=== PATIENT | female | born 1975 | race Caucasian/White ===

== ENCOUNTER 2020-03-02 12:52 | Emergency (ER) | payer OTHER, SELFPAY ==
[2020-03-02 13:50] LABS: Apearance,Urine Clear (Clear); Bilirubin,Urine Negative (Negative); Blood, Urine Negative (Negative); Color,Urine Dark Yellow (Yellow); Glucose,Urine (UA) Negative (Negative); Ketones,Urine Negative (Negative); PH,Urine 5.5 (5.0-8.5); Protein,Urine Negative (Negative); UTC Leukocyte Esterase,Urine Negative (Negative); UTC Nitrate,Urine Negative (Negative); Urobilinogen,Urine 0.2 EU/dl (0.2)
[2020-03-02 13:53] VITALS: BP 156/107; PULSE 102; RESP 20; TEMP 36.5; O2SAT 97; BMI 42.5
--- NOTE | 2020-03-02 13:57 | HMH.EDUTC ---
[facility] [place] Disposition Clinical Impression: Constipation Qualifiers: Constipation type: unspecified constipation type Qualified Code(s): K59.00 - Constipation, unspecified Disposition: Home, Self-Care Condition on Discharge: Good Instructions: Constipation, DI for Abdominal Pain-Adult, DI for Constipation Additional Instructions: Increase the amount of water that you are drinking you need to drink at least 8 -10 glasses of water a day *Follow up with Family Doctor if no improvement Straight to ER if any worsening of pain or fever Return if needed Over the counter Stool softner or Magnesium Citrate may help with constipation as directed on the package Referrals: Teofilo Powell [Primary Care Provider] - As needed Time of Disposition: 15:50 Medical Decision Making - Norberto Inquiry Pt receiving controlled substance: No Norberto was queried for this patient: No Vital Signs: 03/02/20 13:53 03/02/20 15:03 Temperature 97.7 F 97.7 F Temperature Source Oral Pulse Rate 102 H Pulse Rate [Right Brachial] 102 H Respiratory Rate 20 20 Blood Pressure 156/107 H Blood Pressure [Right Arm] 156/107 H Blood Pressure Mean [Right Arm] 123 Blood Pressure Source [Right Arm] Automatic Cuff Blood Pressure Position [Right Arm] Sitting 02 Sat by Pulse Oximetry 97 Oxygen Delivery Method Room Air - Lab Data Lab results reviewed: Yes: I reviewed the patient's lab results. Lab Results 03/02/20 13:46: Urine Color Dark yellow, Urine Appearance Clear, Urine pH 5.5, Ur Specific Gable 1.030, Urine Protein Negative, Urine Glucose (UA) Negative, Urine Ketones Negative, Urine Blood Negative, Urine Nitrate Negative, Urine Bilirubin Negative, Urine Urobilinogen 0.2, Ur Leukocyte Esterase Negative - Radiology Data #1 Image(s): KUB Image Reviewed: Yes I reviewed the patient's radiology image w/the ED provider Discussed with ED physician Constipation Medical Decision Narrative: 1400 called ed about discussion of transfer to ED due to abdominal pain, awaiting call back Spoke with Dr Burton about KUB see recorded and spoke with patient about transfer to ED patient declined transfer at this time Patient educated to go home and drink plenty of water and over the counter stool softner/mag citrate to clear stool and return immediately to the ED if she develops fever or worsening of pain and patient agreed Spoke with Dr Burton and informed her of discussion with patient and she agreed [facility] [place] HPI - General Stated complaint: stomach pain and lower back,no accident Time Seen by Provider: 03/02/20 13:57 Mode of Arrival: Ambulatory Source of Information: Patient Limitations: No Limitations Description of Symptoms (Recalled from Triage Doc. by RN): PATIENT C/O LOWER BACK PAIN AND LOWER ABDOMINAL CRAMPING X 3-4 DAYS. STATES SHE FEELS LIKE SHE HAS TO URINATE FREQUENTLY AND HER URINE IS DARK HEENT Symptoms (Recalled from RN notes): No Resp Symptoms (Recalled from RN notes): No Skin Symptoms (Recalled from RN notes): No MS Symptoms (Recalled from RN notes): Yes Functional Status (Recalled from RN notes): WNL - History of Present Illness Provider Complaint: Patient states that she has been having pain in her lower back area and cramping like pain in her lower abdomen for a couple of days that has continued to get worse states that at times feels like spasm like pain in her abdomen. States that she has a history of kidney stones but doesnt feel like it did then States that she did notice her urine looked dark so she was thinking she may have a UTI States that today she was having some pain/pressure in her lower abdomen still so she came in to get checked - Related Data Home Medications Medication Instructions Recorded Confirmed No Known Home Medications 03/02/20 03/02/20 Allergies Allergy/AdvReac Type Severity Reaction Status Date / Time No Known Allergies Allergy Verified 03/02/20 13:57 - Worker's Comp Is this a Worker's Comp ca
--- NOTE | 2020-03-02 14:36 | XR_ITS ---
PROCEDURE: XR KUB CLINICAL INDICATION: ABD PAIN COMPARISON: CT ABDPELW/O CT ABD PELVIS W/O CONTRAST from 07/13/2015 FINDINGS: Gas pattern-The bowel gas pattern is unremarkable. No obvious obstruction. Calcifications-No abnormal calcifications are evident. No obvious renal or ureteral calculi. Bones-No acute bony anomalies evident. There are mild osteoarthritic changes of the hips. Prior cholecystectomy. Mild amount of retained colonic feces in the transverse colon and ascending colon. IMPRESSION: As above, no acute finding Dictated by: Rayo Tobin MD 03/02/2020 15:03 Rayo Tobin MD in [place] 03/02/2020 15:03
[2020-03-02 15:03] VITALS: BP 156/107; PULSE 102; RESP 20; TEMP 36.5; O2SAT 97
== END 2020-03-02 15:05 | disposition home or self-care (01) ==
PROVIDERS: Emergency Provider Nurse Practitioner; PCP Pediatrics
DX: K59.00 Constipation, unspecified (principal)
CPT/HCPCS: 74018; 81003; 99202

== ENCOUNTER → 2022-07-11 11:49 | Outpatient (CLI) | payer OTHER, SELFPAY ==
--- NOTE | 2022-07-11 11:51 | XR_ITS ---
FINAL REPORT CLINICAL HISTORY: flank pain FINDINGS: There is gas and stool throughout the colon. There are no abnormally dilated loops of small bowel. No abnormal calcification is identified. IMPRESSION: Nonobstructive bowel gas pattern. Reviewed, Interpreted and Dictated by Chiki Erickson MD Transcribed by Mynor Giron Authenticated and [facility]
== END ==
PROVIDERS: PCP Pediatrics; Visit Provider Student in an Organized Health Care Education/Training Program
DX: R10.9 Unspecified abdominal pain (principal)
CPT/HCPCS: 74018

== ENCOUNTER → 2022-07-11 23:38 | Outpatient (CLI) | payer OTHER, SELFPAY | PROVIDERS: PCP Student in an Organized Health Care Education/Training Program; Visit Provider Student in an Organized Health Care Education/Training Program | DX: M54.50 Low back pain, unspecified (principal) | CPT/HCPCS: 87086 ==

== ENCOUNTER → 2022-07-13 12:47 | Outpatient (CLI) | payer OTHER, SELFPAY ==
--- NOTE | 2022-07-13 12:48 | CT_ITS ---
FINAL REPORT TECHNIQUE: Axial images through the abdomen and pelvis were performed without contrast. This study was performed with techniques to keep radiation doses as low as reasonably achievable, (ALARA). Individualized dose reduction techniques using automated exposure control or adjustment of mA and/or kV according to the patient's size were employed. CLINICAL HISTORY: flank pain, right sided back pain, nausea FINDINGS: CT ABDOMEN & PELVIS W/O CONTRAST Abdomen: The lung bases are clear. The liver parenchyma is homogeneous. The gallbladder is surgically absent. The spleen, pancreas, adrenals and kidneys are unremarkable. No definite renal stones are identified. Pelvis: The urinary bladder is unremarkable. The appendix is unremarkable. The uterus is anteverted. There is no pelvic mass or inflammation. IMPRESSION: No acute abnormality. No definite renal stones. Reviewed, Interpreted and Dictated by Chkii Erickson MD Transcribed by Tiffany Rosario Authenticated and . [facility]
== END ==
PROVIDERS: PCP Pediatrics; Visit Provider Student in an Organized Health Care Education/Training Program
DX: R10.9 Unspecified abdominal pain (principal)
CPT/HCPCS: 74176

== ENCOUNTER → 2022-07-25 07:44 | Outpatient (CLI) | payer OTHER, SELFPAY ==
[2022-07-25 08:54] LABS: Chloride 109 mmol/L (98-107); Potassium 4.5 mmoL/L (3.5-5.1); Sodium 140 mmol/L (136-145)
[2022-07-25 08:57] LABS: Anion Gap 9.5 mEq/L (5-15); Blood Urea Nitrogen 10 mg/dl (7-17); Carbon Dioxide 26 mmol/L (22.0-30.0); Estimated Glomerular Filt Rate 108 ml/min (>60); GFR (African American) 131 ML/MIN (>60)
[2022-07-25 08:58] LABS: Calcium 8.6 mg/dl (8.4-10.2); Glucose 130 mg/dl (74-100)
[2022-07-26 13:10] LABS: Adrenocorticotropic Hormone 1.6 pg/mL (7.2-63.3)
[2022-08-09 15:29] LABS: Renin Activity, Plasma 0.189 ng/mL/hr (0.167-5.380)
== END ==
PROVIDERS: PCP Pediatrics; Visit Provider Nurse Practitioner
DX: E27.8 Other specified disorders of adrenal gland (principal)
CPT/HCPCS: 36415; 80048; 82024; 82088; 82533; 82626; 84244

== ENCOUNTER → 2022-08-10 23:00 | Outpatient (CLI) | payer OTHER, SELFPAY ==
[2022-08-10 18:58] LABS: Anion Gap 11.2 mEq/L (5-15); Blood Urea Nitrogen 14 mg/dl (7-17); Calcium 8.6 mg/dl (8.4-10.2); Carbon Dioxide 28 mmol/L (22.0-30.0); Chloride 102 mmol/L (98-107); Chol/HDL Ratio 3.5 (1-3.5); Cholesterol 185 mg/dl (140-200); Estimated Glomerular Filt Rate 90 ml/min (>60); GFR (African American) 109 ML/MIN (>60); Glucose 99 mg/dl (74-100); HDL Cholesterol 53 mg/dl (40-60); Potassium 4.2 mmoL/L (3.5-5.1); Sodium 137 mmol/L (136-145); Triglycerides 95 mg/dl (30-150); VLDL Cholesterol 19 mg/dL (0-40)
[2022-08-10 19:09] LABS: Direct LDL Cholesterol 109.28 mg/dL (100-129)
[2022-08-10 19:26] LABS: T4 (Thyroxine) 10.1 ug/dl (5.53-11.0)
[2022-08-10 19:39] LABS: Thyroid Stimulating Hormone 0.63 uIU/mL (0.465-4.68)
[2022-08-10 21:09] LABS: Hemoglobin A1C 5.3 % (4.0-6.0)
[2022-08-10 21:25] LABS: Free Thyroxine Index 3.1 ug/dL (5.93-13.13); Triiodothryronine (T3) Uptake 31 % (23.5-40.5)
== END ==
PROVIDERS: PCP Nurse Practitioner Family; Visit Provider Nurse Practitioner Family
DX: I10 Essential (primary) hypertension (principal); Z13.1 Encounter for screening for diabetes mellitus; Z13.220 Encounter for screening for lipoid disorders; Z79.899 Other long term (current) drug therapy
CPT/HCPCS: 80048; 80061; 83036; 84436; 84443; 84479

== ENCOUNTER → 2022-09-09 07:45 | Outpatient (CLI) | payer OTHER, SELFPAY ==
--- NOTE | 2022-09-09 07:45 | MM_ITS ---
PROCEDURE INFORMATION: Exam: Bilateral Screening 3D Mammography Exam date and time: 09/09/2022 7:47 AM Age: 47 years old Clinical indication: Baseline. No family history of breast cancer. TECHNIQUE: Imaging protocol: Bilateral Screening tomosynthesis and 2D mammography including computer-aided detection (CAD) when performed. COMPARISON: No relevant prior studies available. FINDINGS: MAMMOGRAPHY: Breast composition: The breasts are heterogeneously dense, which may obscure small masses. Mass: None. Architectural distortion: None. Calcifications: No suspicious calcifications. Asymmetric density: None. Skin thickening: None. Axillary adenopathy: None. IMPRESSION: No mammographic evidence of malignancy. Annual screening is recommended unless otherwise clinically indicated. ASSESSMENT: BI-RADS Category 1: Negative
== END ==
PROVIDERS: PCP Nurse Practitioner Family; Visit Provider Nurse Practitioner Family
DX: Z12.31 Encounter for screening mammogram for malignant neoplasm of breast (principal); I10 Essential (primary) hypertension
CPT/HCPCS: 77063; 77067

== ENCOUNTER → 2022-09-21 09:23 | Outpatient (CLI) | payer OTHER, SELFPAY ==
[2022-09-21 10:38] LABS: HCG Qualitative, Serum Negative (Negative)
== END ==
PROVIDERS: PCP Nurse Practitioner Family; Visit Provider Nurse Practitioner Family
DX: N92.6 Irregular menstruation, unspecified (principal)
CPT/HCPCS: 36415; 84703

== ENCOUNTER → 2022-10-05 15:14 | Outpatient (CLI) | payer OTHER, SELFPAY ==
[2022-10-07 09:37] LABS: FSH 33.5 mIU/mL (.)
[2022-10-07 12:37] LABS: Estradiol 12.8 pg/mL (.); LH 31.3 mIU/mL (.)
== END ==
PROVIDERS: PCP Nurse Practitioner Family; Visit Provider Nurse Practitioner Obstetrics & Gynecology
DX: E34.9 Endocrine disorder, unspecified (principal)
CPT/HCPCS: 36415; 82670; 83001; 83002

== ENCOUNTER 2023-08-14 11:31 | Emergency (ER) | payer OTHER, SELFPAY ==
[2023-08-14] VITALS (9 sets, daily range): BP systolic 122–138; BP diastolic 74–95; PULSE 69–87; RESP 9–20; TEMP 37; O2SAT 95–98; BMI 33.4
[2023-08-14 11:45] LABS: Coronavirus 19, PCR Not Detected (NotDetected); Influenza B, PCR Not Detected (NotDetected)
--- NOTE | 2023-08-14 11:50 | PC.NURSE ---
Dr. Hamilton at [facility] for pt eval
--- NOTE | 2023-08-14 11:52 | XR_ITS ---
FINAL REPORT CLINICAL HISTORY: Acute cough FINDINGS: Two views of the chest were obtained. The heart size and pulmonary vascularity are within normal limits. The mediastinum is normal. No acute pulmonary abnormality is identified. There is no pneumothorax. The bony thorax is intact. IMPRESSION: No active cardiopulmonary disease. Reviewed, Interpreted and Dictated by Gianni Leary III, MD Transcribed by Vidya Brumfield Authenticated and [facility]
--- NOTE | 2023-08-14 11:57 | HMH.EDGENADL ---
Discharge Plan Disposition Patient Disposition: Home, Self-Care Prescriptions Prescriptions: New promethazine 25 mg tablet 25 mg PO TID PRN (Reason: nausea and vomiting) Qty: 12 0RF No Action hydroxyzine pamoate 25 mg capsule See Rx Instructions .ROUTE .COMPLEX Qty: 90 1RF Dose Instruction: TAKE 1 CAPSULE BY MOUTH THREE TIMES DAILY NEEDED FOR ANXIETY Rx Instructions: TAKE 1 CAPSULE BY MOUTH THREE TIMES DAILY NEEDED FOR ANXIETY Premarin 1.25 mg tablet 1.25 mg PO DAILY Qty: 30 6RF progesterone micronized [Prometrium] 100 mg capsule 100 mg PO DAILY 30 Days Qty: 30 6RF amlodipine 5 mg tablet 5 mg PO DAILY Qty: 90 1RF escitalopram oxalate [Lexapro] 10 mg tablet 10 mg PO DAILY Qty: 90 1RF hydrochlorothiazide 25 mg tablet 25 mg PO DAILY Qty: 90 1RF lisinopril 20 mg tablet 20 mg PO DAILY Qty: 90 1RF Referrals Follow up/Referrals: Sam Mclaughlin DO [Primary Care Provider] - See instructions Activity Restrictions/Add. Instructions Additional Instructions/Restrictions: At this time it was felt you are safe to be discharged home. If new or worsening symptoms please do not hesitate to return the emergency department. Please follow-up with your family doctor as discussed for repeat checking of your potassium within 1 week. Please take your medication as prescribed. Clinical Impressions Clinical Impression: Influenza A, Acute hypokalemia Discharge ED Provider: Juma Hamilton General Adult HPI General Chief complaint: Upper Respiratory Infection Stated complaint: v/d headache fever chills Time Seen by Provider: 08/14/23 11:41 Mode of Arrival: Ambulatory Source of Information: Patient Limitations: No Limitations Description of Symptoms (Recalled from ER Triage Doc. by RN): pt states she has been sick x4d. pt c/o a MONTERROSO, N/V/D, cough and fever. History of Present Illness HPI narrative: Patient is a 47-year-old female with no pertinent past medical history presents for 4 days of illness. Patient has had intractable vomiting, inability tolerate p.o., cough with 1 episode of syncope. There is associated diarrhea. Due to persistent symptoms and inability to tolerate p.o. she presents here for continued evaluation. Person that lives with her developed symptoms this morning similar to her cough. Related Data Previous Rx's Medication Instructions Recorded conjugated estrogens 1.25 mg 1.25 mg PO DAILY #30 tabs 06/01/23 tablet (Premarin) progesterone micronized 100 mg 100 mg PO DAILY 30 days #30 caps 06/01/23 capsule (Prometrium) hydroxyzine pamoate 25 mg capsule See Rx Instructions .Route 06/06/23 .COMPLEX #90 caps amlodipine 5 mg tablet 5 mg PO DAILY #90 tabs 06/20/23 escitalopram oxalate 10 mg tablet 10 mg PO DAILY #90 tabs 06/20/23 (Lexapro) hydrochlorothiazide 25 mg tablet 25 mg PO DAILY #90 tabs 06/20/23 lisinopril 20 mg tablet 20 mg PO DAILY #90 tabs 06/20/23 promethazine 25 mg tablet 25 mg PO TID PRN nausea and 08/14/23 vomiting #12 tabs Allergies Allergy/AdvReac Type Severity Reaction Status Date / Time No Known Allergies Allergy Verified 06/20/23 08:56 [facility] Disclaimer: The information contained in this section may have been updated after the patient was seen, as this information can be updated by other users. Medical History History of adrenal disorder History of hypertension Insomnia Surgical History History of back surgery L4, L5 Hx of cholecystectomy Hx of knee surgery Hx of tonsillectomy Hx of tubal ligation Family History Other Diabetes Hypertension Social History Smoking Status: Never smoker how long ago did patient quit smoking: just smoked socially in the past; none current second hand exposure: No alcohol intake: current counseling given: No substance use type: marijuana counseling given: No (last time she did this was about 3 weeks ago) current occupational status: employed Travel in the last 8 weeks: None adopted: No caregiver/support person: No foster care: No household members: significant other housing: house lives independently: Yes marital status: number of children: 2 number of grandchildren: 1 education level: high school 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 Recent Travel: No sexually active: Yes caffeine: Yes physical activity: none working smoke detector in home: Yes fire extinguisher in home: Yes carbon monox detector in home: Yes firearms in home: No do you feel safe at home: Yes victim of physical abuse: No victim of emotional abuse: No victim of sexual abuse: No ROS Obtained: Yes Systems reviewed as appropriate & no additional complaints except as documented Physical Exam General General appearance: alert and in no apparent distress Head Head exam: atraumatic and normocephalic Eye Eye exam: Present PERRL ENT ENT exam: Present mucous membranes moist Neck Neck exam: Present normal inspection Chest Chest inspection: Present normal inspection and symmetric chest wall rise Respiratory Respiratory exam: Present normal lung sounds bilaterally and wheezes (Scant, posterior lung alaniz); Absent respiratory distress Cardiovascular Cardiovascular exam: Present regular rate and normal rhythm Abdominal Exam Abdominal exam: Present soft; Absent tenderness Extremities Exam Extremities exam: Present normal inspection Neurological Exam Neurological exam: Present alert Psychiatric Psychiatric exam: Present normal affect Skin Skin exam: Present warm and dry Medical Decision Making Norberto Inquiry Pt receiving controlled substance: No Vital Signs: 08/14/23 11:43 08/14/23 12:21 08/14/23 12:28 Temperature 98.6 F Temperature Source Oral Pulse Rate 78 72 Pulse Rate [Left] 82 Respiratory Rate 18 12 12 Blood Pressure 138/86 138/86 Blood Pressure [Right Arm] 137/95 H Blood Pressure Mean [Right Arm] 109 Blood Pressure Source [Right Arm] Automatic Cuff Blood Pressure Position [Right Arm] Sitting 02 Sat by Pulse Oximetry 97 97 96 Oxygen Delivery Method Room Air Room Air 08/14/23 12:30 08/14/23 13:00 08/14/23 13:30 Temperature Temperature Source Pulse Rate 69 78 70 Pulse Rate [Left] Respiratory Rate 13 9 L 19 Blood Pressure 134/83 132/82 125/79 Blood Pressure [Right Arm] Blood Pressure Mean [Right Arm] Blood Pressure Source [Right Arm] Blood Pressure Position [Right Arm] 02 Sat by Pulse Oximetry 97 96 96 Oxygen Delivery Method Room Air Room Air Room Air 08/14/23 13:45 08/14/23 14:30 Temperature Temperature Source Pulse Rate 85 70 Pulse Rate [Left] Respiratory Rate 17 16 Blood Pressure 126/74 128/88 Blood Pressure [Right Arm] Blood Pressure Mean [Right Arm] Blood Pressure Source [Right Arm] Blood Pressure Position [Right Arm] 02 Sat by Pulse Oximetry 98 95 Oxygen Delivery Method Room Air Room Air Lab Data Lab Results 08/14/23 11:40: SARS-CoV-2 (PCR) Not detected, Influenza A Untype (PCR) Detected A, Influenza Type B (PCR) Not detected 08/14/23 11:50: WBC 5.7, RBC 4.91, Hgb 14.6, Hct 44.6, MCV 90.9, MCH 29.7, MCHC 32.7, RDW 13.7, Plt Count 231, MPV 8.2, Neut % (Auto) 62.0, Lymph % (Auto) 30.5, [place] % (Auto) 6.0, Eos % (Auto) 0.5, Baso % (Auto) 1.1, Neut # (Auto) 3.6, Lymph # (Auto) 1.7, [place] # (Auto) 0.3, Eos # (Auto) 0.0, Baso # (Auto) 0.1, Sodium 138, Potassium 3.0 L, Chloride 100, Carbon Dioxide 28, Anion Gap 13.0, BUN 13, Creatinine 0.70, Estimated Creat Clear 158, Estimated GFR 90, Est GFR ( Amer) 109, Glucose 122 H, Calcium 8.6, Total Bilirubin 0.5, AST 34, ALT 31, Alkaline Phosphatase 68, Total Protein 7.9, Albumin 4.4, Globulin 3.5 H, Albumin/Globulin Ratio 1.3, Lipase 60, Serum HCG, Qual Negative 08/14/23 11:50 08/14/23 11:50 Orders (Tests/Meds): ED MEDICATIONS Generic Name Dose Route Start Last Admin Trade Name Freq PRN Reason Stop Dose Admin Sodium Chloride 10 ml 08/14/23 11:52 08/14/23 13:19 Sodium Chloride 0.9% 10ml Flush Syringe IV 08/14/23 23:53 10 ml NEEDED PRN Administration Maintain IV Site Discontinued Medications Generic Name Dose Route Start Last Admin Trade Name Freq PRN Reason Stop Dose Admin Lactated Ringer's 1,000 mls @ 999 mls/hr 08/14/23 11:52 08/14/23 12:00 Lactated Ringer's 1000 Ml Bag IV 08/14/23 12:52 999 mls/hr .Q1H1M ONE Administration Potassium Chloride/Water 100 mls @ 50 mls/hr 08/14/23 12:13 08/14/23 12:51 Potassium Chloride 20meq/100ml Ivpb IV 08/14/23 14:12 50 mls/hr ONCE ONE Administration Ondansetron HCl 4 mg 08/14/23 11:52 08/14/23 12:00 Ondansetron 4mg/2ml Vial IV 08/14/23 11:53 4 mg ONCE ONE Administration Potassium Chloride 40 meq 08/14/23 12:10 08/14/23 12:56 Potassium Chloride 20meq Tab PO 08/14/23 12:11 40 meq ONCE ONE Administration Promethazine HCl 25 mg 08/14/23 13:16 08/14/23 13:18 Promethazine Hcl 25mg/Ml 1ml Vial IV 08/14/23 13:17 25 mg ONCE ONE Administration Sodium Chloride 25 ml 08/14/23 13:16 08/14/23 13:18 Sodium Chloride 0.9% 25ml Bag IV 08/14/23 13:17 25 ml ONCE ONE Administration ORDERS Category Date Time Status CXR 2 view (NOT portable) [XR chest 2V] Stat Exams 08/14/23 11:52 Completed Complete Blood Count Auto Diff Stat Lab 08/14/23 11:50 Completed Comprehensive Metabolic Panel Stat Lab 08/14/23 11:50 Completed Lipase Stat Lab 08/14/23 11:50 Completed Rapid PCR Covid and Flu A/B Stat Lab 08/14/23 11:40 Completed Serum [HCG Qualitative, Serum] Stat Lab 08/14/23 11:50 Completed EKG Request [ECG Request] Stat Y 08/14/23 11:59 Ordered ECG Data Tracing #1: Independently interpreted by me, rate 75, rhythm is regular, no ST elevation in anatomical contiguous leads, QTc 403 Medical Decision Narrative: In summary patient is a 47-year-old female past medical history described above who presents emergency department for evaluation of shortness of breath, cough, vomiting, diarrhea. Patient is hemodynamically stable nontoxic-appearing upon arrival, afebrile. Differential diagnosis includes viral syndrome, influenza, pneumonia, electrolyte derangement, pancreatitis, among others. Workup will be conducted with hematologic labs, two-view chest x-ray, viral swab. Initial interventions include crystalloid bolus, Zofran. EKG will be obtained given history of syncope however is consistent with hypovolemia and vasovagal type. Workup reviewed by me, hematologic labs remarkable for hypokalemia which will be repleted p.o. and IV, no other critical electrolyte abnormalities, hCG negative. Patient is influenza A positive. Upon repeat evaluation patient underwent p.o. trial was successful. Given this patient is appropriate for discharge at this time. Patient be discharged with a course of Phenergan and will follow-up with Dr. Mclaughlin for repeat potassium in the coming week. Patient was given return precautions. Critical Care Critical Care Time Critical Care Time: Yes Attestation: On 08/14/23, the high probability of a clinically significant, sudden or life threatening deterioration of the following system(s) required my full and direct attention, intervention and personal management. The time I documented below is in addition to time spent performing reported procedures but includes the following listed in this critical care notation. Total Time Total Critical Care Time: 30
[2023-08-14 11:59] LABS: Basophils # 0.1 K/mm3 (0-0.2); Basophils % 1.1 % (0.1-2.0); Eosinophils % 0.5 % (0.1-12.0); Hematocrit 44.6 % (37.0-47.0); Hemoglobin 14.6 g/dL (12.2-16.2); Lymphocytes # 1.7 K/mm3 (0.7-4.5); Lymphocytes % 30.5 % (10-50); Mean Corpuscular HGB Conc 32.7 g/dL (31.8-35.4); Mean Corpuscular Hemoglobin 29.7 pg (27.0-31.2); Mean Corpuscular Volume 90.9 fl (81-99); Mean Platelet Volume 8.2 fl (7.4-10.4); Monocytes # 0.3 K/mm3 (0.1-1.0); Neutrophils # 3.6 K/mm3 (1.8-7.8); Platelet Count 231 K/mm3 (142-424); Red Blood Count 4.91 M/mm3 (4.20-5.40); Red Cell Distribution Width 13.7 % (11.5-17.5); White Blood Count 5.7 K/mm3 (4.8-10.8)
[2023-08-14] MEDS: ONDANSETRON 4MG/2ML VIAL 4 MG IV (12:00)
[2023-08-14] MEDS: LACTATED RINGERS 1000ML 1,000 ML 999 ML IV (12:00)
[2023-08-14 12:04] LABS: Alanine Aminotransferase 31 U/L (12-78); Albumin Level 4.4 g/dl (3.5-5.0); Albumin/Globulin Ratio 1.3 (1.1-1.8); Alkaline Phosphatase 68 U/L (38-126); Aspartate Amino Transferase 34 U/L (14-36); Bilirubin,Total 0.5 mg/dl (0.2-1.3); Blood Urea Nitrogen 13 mg/dl (7-17); Calcium 8.6 mg/dl (8.4-10.2); Carbon Dioxide 28 mmol/L (22.0-30.0); Chloride 100 mmol/L (98-107); Creatinine Clearance Estimated 158 mL/min (50-200); Estimated Glomerular Filt Rate 90 ml/min (>60); GFR (African American) 109 ML/MIN (>60); Globulin 3.5 g/dL (1.3-3.2); Glucose 122 mg/dl (74-100); Sodium 138 mmol/L (136-145); Total Protein,Serum 7.9 g/dl (6.3-8.2)
[2023-08-14 12:08] LABS: Influenza A, PCR Detected (NotDetected)
[2023-08-14 12:10] LABS: HCG Qualitative, Serum Negative (Negative)
[2023-08-14 12:11] LABS: Lipase 60 U/L (23-300)
--- NOTE | 2023-08-14 12:18 | ECG_ITS ---
APPROVED REPORT Exam: Resting ECG HR:75 bpm ECG Measurements Heart Rate 75 AXES WV 165 P 50 QRSd 94 QRS -30 QT 375 T 58 QTc 403 Conclusion SINUS RHYTHM BORDERLINE LEFT AXIS DEVIATION [QRS AXIS < -20] LOW QRS VOLTAGE IN PRECORDIAL LEADS [QRS DEFLECTION < 1.0 mV IN CHEST LEADS] PATTERN CONSISTENT WITH PULMONARY DISEASE ABNORMAL ECG Electronically signed by : CALVIN MCCARTNEY, 08/14/2023 16:25:46
[2023-08-14] MEDS: KCl 20mEq/100ml 100 ML 50 MEQ IV (12:51)
[2023-08-14] MEDS: POTASSIUM CHLORIDE 20MEQ TAB 40 MEQ PO (12:56)
--- NOTE | 2023-08-14 13:16 | PC.NURSE ---
NOTIFIED DR. MCCARTNEY PATIENT IS REQUESTING ADDITIONAL MEDICATION FOR NAUSEA. TO ORDER PHENERGAN.
[2023-08-14] MEDS: PROMETHAZINE HCL 25MG/ML 1ML VIAL 25 MG IV (13:18)
[2023-08-14] MEDS: SODIUM CHLORIDE 0.9% 25ML BAG 25 ML IV (13:18)
[2023-08-14] MEDS: SODIUM CHLORIDE 0.9% 10ML FLUSH SYRINGE 10 ML IV (13:19)
--- NOTE | 2023-08-14 13:30 | PC.NURSE ---
Rounded on pt. No needs or complaints voiced a this time. Call light within reach.
--- NOTE | 2023-08-14 13:57 | PC.NURSE ---
PATIENT REPORT NAUSEA RELIEVED BY PHENERGAN. VISITOR AT BEDSIDE.
== END 2023-08-14 15:20 | disposition home or self-care (01) ==
PROVIDERS: Emergency Provider Emergency Medicine; PCP Internal Medicine
DX: J10.1 Influenza due to other identified influenza virus with other respiratory manifestations (principal); J10.2 Influenza due to other identified influenza virus with gastrointestinal manifestations; E87.6 Hypokalemia; R51.9 Headache, unspecified; R11.2 Nausea with vomiting, unspecified; R19.7 Diarrhea, unspecified; R05.9 Cough, unspecified; R50.9 Fever, unspecified; R55 Syncope and collapse; E86.1 Hypovolemia
CPT/HCPCS: 71046; 80053; 83690; 84703; 85025; 87636; 93005; 96361; 96365; 96366; 96375; 99291; J2405

== ENCOUNTER 2023-08-25 14:03 | Outpatient (CLI) | payer OTHER, SELFPAY ==
[2023-08-25 12:15] LABS: Chloride 103 mmol/L (98-107); Potassium 4.5 mmoL/L (3.5-5.1); Sodium 136 mmol/L (136-145)
[2023-08-25 12:18] LABS: Anion Gap 10.5 mEq/L (5-15); Blood Urea Nitrogen 17 mg/dl (7-17); Calcium 9.2 mg/dl (8.4-10.2); Carbon Dioxide 27 mmol/L (22.0-30.0); Estimated Glomerular Filt Rate 107 ml/min (>60); GFR (African American) 130 ML/MIN (>60); Glucose 111 mg/dl (74-100)
== END 2023-08-25 23:59 ==
LOC: LAB.DROPOF 14:04
PROVIDERS: PCP Internal Medicine; Visit Provider Internal Medicine
DX: E87.6 Hypokalemia (principal)
CPT/HCPCS: 80048

== ENCOUNTER 2023-09-13 08:16 | Outpatient (CLI) | payer OTHER, SELFPAY ==
--- NOTE | 2023-09-13 08:24 | CT_ITS ---
FINAL REPORT TECHNIQUE: Axial CT images of the abdomen and pelvis were obtained before and after the administration of IV contrast. This study was performed with techniques to keep radiation doses as low as reasonably achievable (ALARA). Individualized dose reduction techniques using automated exposure control or adjustment of mA and/or kV according to the patient's size were employed. CLINICAL HISTORY: ADRENAL NODULE COMPARISON: 07/13/2022 FINDINGS: Abdomen: The lung bases are clear. The heart is normal in size. There is a 10 mm cyst present in the right hepatic lobe, stable since the prior CT. No other focal hepatic mass or duct dilatation is seen. The gallbladder has been surgically resected.. The spleen is unremarkable. There is a 15 mm left adrenal nodule, that measures 7 Hounsfield units on the noncontrast examination, consistent with an adrenal adenoma. The pancreas has an unremarkable appearance. The kidneys enhance normally. The aorta is normal in caliber. There is no free fluid or adenopathy. No mass or abnormal fluid collection is seen. Precontrast images demonstrate no evidence of nephrolithiasis. Pelvis: The appendix is normal in appearance. The urinary bladder is unremarkable. No inflammatory process is seen. There is no evidence of mass or adenopathy. There is no evidence of bowel obstruction. IMPRESSION: Left adrenal nodule, 15 mm in size, consistent in appearance with an adrenal adenoma. Prior cholecystectomy. 10 mm cyst right hepatic lobe, stable. Reviewed, Interpreted and Dictated by Gianni Leary III, MD Transcribed by Margot Cuba Authenticated and [facility]
[2023-09-13 08:52] LABS: Blood Urea Nitrogen 18 mg/dl (7-17); Estimated Glomerular Filt Rate 90 ml/min (>60); GFR (African American) 109 ML/MIN (>60)
[2023-09-13] MEDS: IOPAMIDOL-370 (76%);100ML BOTTLE 75 ML IV (09:20)
[2023-09-13] MEDS: SODIUM CHLORIDE 0.9% 10ML SYR (RAD ONLY) 10 ML IV (09:20)
== END 2023-09-13 23:59 ==
LOC: RAD 08:17
PROVIDERS: PCP Internal Medicine; Visit Provider Nurse Practitioner
DX: E27.8 Other specified disorders of adrenal gland (principal); I10 Essential (primary) hypertension
CPT/HCPCS: 36415; 74178; 82565; 84520; Q9967

== ENCOUNTER 2023-12-11 10:59 | Outpatient (CLI) | payer OTHER, SELFPAY ==
--- NOTE | 2023-12-11 11:00 | US_ITS ---
PROCEDURE: US TRANSVAGINAL CLINICAL INDICATION: Abnormal menses and bleeding COMPARISON: CT CT ABDOMEN PELVIS WO/W CON from 09/13/2023 FINDINGS: Transvaginal sonographic images of the pelvis were obtained. UTERUS: 8.6 cm x 3.9 cmx 4.0cm anteverted with a combined endometrial thickness of 9.8mm. There is a posterior fibroid measuring 1.6 cm x 0.9 cm x 1.5 cm. The endometrium is thickened and difficult to entirely visualized. There are several small nabothian cysts. LEFT OVARY: 1.8 cmx1.4cmx1.0cm with a volume of 1.2ml. RIGHT OVARY: 2.3cmx 2.4cmx1.4cm with a volume of 4ml. Both ovaries are seen and appear normal. Doppler flow to both ovaries are seen. There is no fluid in the cul-de-sac. IMPRESSION: 1. Anteverted uterus normal in shape and size. 2. The endometrium is thickened for a postmenopausal woman. Suggest endometrial sampling. 3. Both ovaries are seen and appear normal. They appear atrophic. 4. There is no fluid in the cul-de-sac. Dictated by: Mauricio Santos MD 12/12/2023 04:57 Mauricio Santos MD in [place] 12/12/2023 04:57
== END 2023-12-11 23:59 | disposition home or self-care (01) ==
LOC: RAD 11:00
PROVIDERS: PCP Internal Medicine; Visit Provider Nurse Practitioner Obstetrics & Gynecology
DX: N92.6 Irregular menstruation, unspecified (principal)
CPT/HCPCS: 76830

== ENCOUNTER 2024-01-10 10:44 | Outpatient (CLI) | payer OTHER, SELFPAY ==
--- NOTE | 2024-01-10 10:44 | MM_ITS ---
PROCEDURE INFORMATION: Exam: MG Bilateral Screening 3D Mammography Exam date and time: 01/10/2024 10:38 AM Age: 48 years old Clinical indication: Screening exam. TECHNIQUE: Imaging protocol: Bilateral Screening tomosynthesis and 2D mammography including computer-aided detection (CAD) when performed. COMPARISON: MG MM DIG SCREENING MAMM BI W/CAD 09/09/2022 7:47 AM FINDINGS: MAMMOGRAPHY: Breast composition: There are scattered areas of fibroglandular density. Mass: No suspicious masses. Architectural distortion: None. Calcifications: No suspicious calcifications. Asymmetric density: None. Skin thickening: None. Axillary adenopathy: None. IMPRESSION: No mammographic evidence of malignancy. Annual screening is recommended unless otherwise clinically indicated. ASSESSMENT: BI-RADS Category 1: Negative
== END 2024-01-10 23:59 | disposition home or self-care (01) ==
LOC: RAD 10:44
PROVIDERS: PCP Internal Medicine; Visit Provider Nurse Practitioner Obstetrics & Gynecology
DX: Z12.31 Encounter for screening mammogram for malignant neoplasm of breast (principal)
CPT/HCPCS: 77063; 77067

== ENCOUNTER 2024-01-15 07:28 | Outpatient (CLI) | payer OTHER, SELFPAY ==
[2024-01-15 07:43] LABS: Basophils # 0.1 K/mm3 (0-0.2); Basophils % 0.7 % (0.1-2.0); Eosinophils # 0.1 K/mm3 (0.0-0.4); Eosinophils % 1.9 % (0.1-12.0); Hematocrit 39.1 % (37.0-47.0); Hemoglobin 12.4 g/dL (12.2-16.2); Lymphocytes # 2.4 K/mm3 (0.7-4.5); Lymphocytes % 37.1 % (10-50); Mean Corpuscular HGB Conc 31.6 g/dL (31.8-35.4); Mean Corpuscular Hemoglobin 29.7 pg (27.0-31.2); Mean Corpuscular Volume 93.8 fl (81-99); Mean Platelet Volume 8.9 fl (7.4-10.4); Monocytes # 0.4 K/mm3 (0.1-1.0); Monocytes % 5.8 % (1.7-9.3); Neutrophils # 3.6 K/mm3 (1.8-7.8); Neutrophils % 54.4 % (37.0-80.0); Platelet Count 247 K/mm3 (142-424); Red Blood Count 4.17 M/mm3 (4.20-5.40); Red Cell Distribution Width 13.5 % (11.5-17.5); White Blood Count 6.6 K/mm3 (4.8-10.8)
[2024-01-15 08:19] LABS: Chloride 103 mmol/L (98-107)
[2024-01-15 08:20] LABS: Albumin Level 3.8 g/dl (3.5-5.0); Potassium 3.5 mmoL/L (3.5-5.1); Sodium 137 mmol/L (136-145)
[2024-01-15 08:22] LABS: Alanine Aminotransferase 19 U/L (12-78); Anion Gap 5.5 mEq/L (5-15); Aspartate Amino Transferase 19 U/L (14-36); Blood Urea Nitrogen 22 mg/dl (7-17); Carbon Dioxide 32 mmol/L (22.0-30.0); Estimated Glomerular Filt Rate 67 ml/min (>60); GFR (African American) 81 ML/MIN (>60)
[2024-01-15 08:23] LABS: Albumin/Globulin Ratio 1.4 (1.1-1.8); Alkaline Phosphatase 49 U/L (38-126); Bilirubin,Total 0.4 mg/dl (0.2-1.3); Calcium 8.7 mg/dl (8.4-10.2); Globulin 2.7 g/dL (1.3-3.2); Glucose 98 mg/dl (74-100); Total Protein,Serum 6.5 g/dl (6.3-8.2)
[2024-01-15 08:46] LABS: HCG,Quantitative < 2 mIU/ml (0-5.42)
== END 2024-01-15 23:59 | disposition home or self-care (01) ==
PROVIDERS: PCP Internal Medicine; Visit Provider Nurse Practitioner Obstetrics & Gynecology
DX: N92.1 Excessive and frequent menstruation with irregular cycle (principal)
CPT/HCPCS: 36415; 80053; 84702; 85025

== ENCOUNTER 2024-01-18 06:00 | Day surgery (SDC) | payer OTHER, SELFPAY ==
[2024-01-16 13:48] VITALS: BMI 34.3
[2024-01-18] VITALS (9 sets, daily range): BP systolic 108–160; BP diastolic 57–95; PULSE 64–83; RESP 12–18; TEMP 36.1–36.6; O2SAT 91–98
--- NOTE | 2024-01-18 06:12 | ECG_ITS ---
APPROVED REPORT Exam: Resting ECG HR:67 bpm ECG Measurements Heart Rate 67 AXES TX 181 P 14 QRSd 91 QRS 30 QT 425 T 9 QTc 440 Conclusion SINUS RHYTHM Normal axis INCOMPLETE RIGHT BUNDLE BRANCH BLOCK [90+ ms QRS DURATION, TERMINAL R IN V1/V2, 40+ ms S IN I/aVL/V4/V5/V6] Low qrs voltages - body habitus vs. pulmonary disease? BORDERLINE ECG UNCONFIRMED REPORT Electronically signed by : Marques Luis MD 01/19/2024 16:03:51
[2024-01-18] MEDS: LACTATED RINGERS 1000ML 1,000 ML 25 ML IV (06:16)
[2024-01-18] MEDS: CEFAZOLIN SODIUM 2 GM in 0.9 % SODIUM CHLORIDE 100 ML IV (07:42)
[2024-01-18] MEDS: SODIUM CHLORIDE IRRIG SOLUTION 3,000 ML 3000 ML IR (07:43)
--- NOTE | 2024-01-18 07:44 | P.PNANES_ITS ---
[facility] Disclaimer: The information contained in this section may have been updated after the patient was seen, as this information can be updated by other users. Medical History Insomnia History of hypertension History of adrenal disorder Surgical History Hx of knee surgery History of back surgery L4, L5 Hx of cholecystectomy Hx of tonsillectomy Hx of tubal ligation Family History Other Diabetes Hypertension Social History Smoking Status: Never smoker how long ago did patient quit smoking: just smoked socially in the past; none current second hand exposure: No alcohol intake: current alcohol intake frequency: holidays/special occasions only counseling given: No substance use type: marijuana counseling given: No (last time she did this was about 3 weeks ago) current occupational status: employed Travel in the last 8 weeks: None adopted: No caregiver/support person: No foster care: No household members: significant other housing: house lives independently: Yes marital status: number of children: 2 number of grandchildren: 1 education level: high school 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 Travel: No sexually active: Yes caffeine: Yes physical activity: none working smoke detector in home: Yes fire extinguisher in home: Yes carbon monox detector in home: Yes firearms in home: No do you feel safe at home: Yes victim of physical abuse: No victim of emotional abuse: No victim of sexual abuse: No [facility] Anesthesia Checklist Patient Identification Patient Identification: Verbal (Name & ) Structural Data Admitted From: Home Planned Operative Procedure/s: d/c hyst Consent for Planned Operative Procedure(s) Verified: Yes NPO Status Verified Time NPO: 00:00 Additional verifications Anesthesia Reactions: No Hx Blood Transfusions: No Airway Assessment Mallampati Score:: Class II C-Spine Mobility Assessed: Yes TMJ Mobility Assessed: Yes Dentition: Good Dentition Neurological Assessment Level of Consciousness: Awake, Alert and Appropriate Anesthesia Plan Anesthesia Risk discussed: Yes Anesthesia Plan: Verified ASA Class: II Anesthesia Type: General
[2024-01-18] MEDS: ROPIVACAINE 0.5% 30ML VIAL 150 MG (07:55)
--- NOTE | 2024-01-18 08:06 | P.OP_ITS ---
Date of procedure: 01/18/24 Pre-op Diagnosis:: Menorrhagia, vaginal skin tag Post-op Diagnosis:: Menorrhagia, vaginal skin tag Procedure performed:: Hysteroscopy, dilation and curettage, NovaSure ablation, removal of vaginal skin tag. Surgeon:: Mauricio Santos MD CAMPUS SECURITY DIRECTOR:: Andrews Jackson Anesthesia: LMA Estimated blood loss (mL): 50 Clinical Note:: She is a 48-year-old lady who complains of extremely heavy periods. She also had a vaginal skin tag on the posterior aspect of the vagina at the introitus. After having discussed the risk and benefits she elected to have this small skin tag removed. She also expressed desire for hysteroscopy, D&C and NovaSure ablation. Operative findings:: She had a 1-1/2 cm skin tag on the posterior fourchette. Endometrium appeared normal and lush. Operative note:: She was taken to the operating room where LMA anesthesia was found be adequate. She was prepped and draped in the normal sterile fashion in the lithotomy position. A weighted speculum was placed in the vagina and the anterior lip of the cervix was grasped with a tenaculum. The cervix was then dilated to approximately 6 mm. I then inserted a hysteroscope into the uterine cavity and the findings were as previously dictated. I then performed a gentle curettage with a medium curette. I then sounded the uterus and determine the length of the uterus. I then inserte d the NovaSure device and determine the width of the endometrial cavity. The length of the cavity was 6 cm and the width was 3.5 cm. This was placed into the NovaSure device. I then ran the device through its program. I further inspected the endometrial cavity and was found to be completely charred. I then injected 30 cc of 0.5% ropivacaine at the 3:00, 5:00, 7:00, and 9:00 positions of the cervix. She tolerated procedure well and was taken to the recovery room in excellent condition. All sponge and instrument counts were correct. The estimated blood loss was less than 50 cc. Condition: stable Disposition: PACU Specimens:: Endometrial curettings Complications:: None
--- NOTE | 2024-01-18 08:06 | P.PNANES_ITS ---
[facility] Anesthesia Record Part I Anesthesia Record I Intake, IV Amount: 1,000 Hydration: Adequate Estimated blood loss (mL): 0 Urine output (mL): 0 Blood Pressure: 160/58 SaO2: 92 Pulse Rate: 78 Airway Patency: Patent Respiratory Rate: 12 Temperature: 97.2 F Patient is:: Awake and Stable Stable to PACU at:: 08:05
[2024-01-18] MEDS: MORPHINE 2MG/ML SYRINGE 2 MG IV (08:24)
--- NOTE | 2024-01-18 08:29 | SUR.PHASEI ---
Clinic pharmacy contacted for meds to beds at this time.
--- NOTE | 2024-01-19 11:53 | EXP.ANES.II ---
[facility] Anesthesia Record Part II Anesthesia Record Part II Discharge Time: 08:35 Destination: Surgical Day Care (OP Surgery) PACU nurse assessment reviewed?: Yes Patient Condition:: Good Anesthesia Complications:: None Swallowing reflex intact?: Yes Airway Patency: Patent Cyanosis?: No Blood Pressure: 128/77 SaO2: 97 Respiratory Rate: 18 Pulse Rate: 73 Temperature: 97.8 F Mental Status: Alert & Oriented Pain level:: 2 Nausea and/or vomitting:: None Intake, IV Amount: 0 Hydration: Adequate
[2024-01-19 11:54] VITALS: BP 128/77; PULSE 73; RESP 18; TEMP 36.6; O2SAT 97
== END 2024-01-18 09:09 | disposition home or self-care (01) ==
PROVIDERS: PCP Internal Medicine; Visit Provider Nurse Practitioner Obstetrics & Gynecology
PROC: 0U5B8ZZ Destruction of Endometrium, Via Natural or Artificial Opening Endoscopic (ICD-10-PCS; CPT 58563; principal; 2024-01-18 07:30)
DX: N92.0 Excessive and frequent menstruation with regular cycle (principal); D28.0 Benign neoplasm of vulva
CPT/HCPCS: 58563; 11200; 93005; 96374; J0690; J1100; J1885; J2250; J2270; J2405; J3010; J7120

== ENCOUNTER 2024-02-01 14:16 | Outpatient (CLI) | payer OTHER, SELFPAY ==
[2024-02-01 16:01] LABS: Chloride 100 mmol/L (98-107)
[2024-02-01 16:02] LABS: Albumin Level 4.5 g/dl (3.5-5.0); Potassium 4.1 mmoL/L (3.5-5.1); Sodium 136 mmol/L (136-145)
[2024-02-01 16:04] LABS: Alanine Aminotransferase 16 U/L (12-78); Blood Urea Nitrogen 15 mg/dl (7-17); Estimated Glomerular Filt Rate 77 ml/min (>60); GFR (African American) 93 ML/MIN (>60)
[2024-02-01 16:05] LABS: Albumin/Globulin Ratio 1.5 (1.1-1.8); Alkaline Phosphatase 63 U/L (38-126); Anion Gap 11.1 mEq/L (5-15); Aspartate Amino Transferase 21 U/L (14-36); Bilirubin,Total 0.6 mg/dl (0.2-1.3); Calcium 9.2 mg/dl (8.4-10.2); Carbon Dioxide 29 mmol/L (22.0-30.0); Globulin 3.1 g/dL (1.3-3.2); Glucose 93 mg/dl (74-100); Total Protein,Serum 7.6 g/dl (6.3-8.2)
== END 2024-02-01 23:59 | disposition home or self-care (01) ==
LOC: LAB 14:18
PROVIDERS: PCP Obstetrics & Gynecology; Visit Provider Nurse Practitioner Obstetrics & Gynecology
DX: N95.1 Menopausal and female climacteric states (principal)
CPT/HCPCS: 36415; 80053

== ENCOUNTER 2024-02-12 15:21 | Outpatient (CLI) | payer OTHER, SELFPAY ==
[2024-02-12 15:37] LABS: Basophils # 0.1 K/mm3 (0-0.2); Basophils % 0.5 % (0.1-2.0); Eosinophils # 0.1 K/mm3 (0.0-0.4); Eosinophils % 0.6 % (0.1-12.0); Hematocrit 39.3 % (37.0-47.0); Hemoglobin 12.5 g/dL (12.2-16.2); Lymphocytes # 3.2 K/mm3 (0.7-4.5); Lymphocytes % 30.1 % (10-50); Mean Corpuscular HGB Conc 31.8 g/dL (31.8-35.4); Mean Corpuscular Hemoglobin 29.8 pg (27.0-31.2); Mean Corpuscular Volume 93.7 fl (81-99); Mean Platelet Volume 8.7 fl (7.4-10.4); Monocytes # 0.5 K/mm3 (0.1-1.0); Monocytes % 4.7 % (1.7-9.3); Neutrophils # 6.9 K/mm3 (1.8-7.8); Neutrophils % 64.1 % (37.0-80.0); Platelet Count 306 K/mm3 (142-424); Red Cell Distribution Width 13.9 % (11.5-17.5); White Blood Count 10.8 K/mm3 (4.8-10.8)
[2024-02-12 15:57] LABS: Alanine Aminotransferase 19 U/L (12-78); Albumin Level 4.1 g/dl (3.5-5.0); Aspartate Amino Transferase 22 U/L (14-36); Bilirubin,Unconjugated 0.2 mg/dL (0.0-1.1); Blood Urea Nitrogen 14 mg/dl (7-17); Calcium 9.2 mg/dl (8.4-10.2); Carbon Dioxide 29 mmol/L (22.0-30.0); Chloride 101 mmol/L (98-107); Cholesterol 230 mg/dl (140-200); Estimated Glomerular Filt Rate 67 ml/min (>60); GFR (African American) 81 ML/MIN (>60); Glucose 106 mg/dl (74-100); Total Protein,Serum 7.3 g/dl (6.3-8.2); Triglycerides 176 mg/dl (30-150); VLDL Cholesterol 35 mg/dL (0-40)
[2024-02-12 15:58] LABS: Alkaline Phosphatase 49 U/L (38-126); Anion Gap 7.6 mEq/L (5-15); Chol/HDL Ratio 3.2 (1-3.5); HDL Cholesterol 73 mg/dl (40-60); Potassium 3.6 mmoL/L (3.5-5.1); Sodium 134 mmol/L (136-145)
[2024-02-12 16:01] LABS: Bilirubin,Total 0.5 mg/dl (0.2-1.3)
[2024-02-12 16:08] LABS: Direct LDL Cholesterol 121.86 mg/dL (100-129)
[2024-02-12 16:14] LABS: Free T4 (Free Thyroxine) 1.05 ng/dl (0.78-2.19)
[2024-02-12 16:27] LABS: Thyroid Stimulating Hormone 1.11 uIU/mL (0.465-4.68)
[2024-02-12 22:02] LABS: Bilirubin,Direct 0.1 mg/dl (0.0-0.4); Bilirubin,Indirect 0.4 mg/dL (0.0-0.9)
== END 2024-02-12 23:59 | disposition home or self-care (01) ==
LOC: LAB 15:22
PROVIDERS: PCP Internal Medicine; Visit Provider Nurse Practitioner
DX: R94.31 Abnormal electrocardiogram [ECG] [EKG] (principal); R06.00 Dyspnea, unspecified; R07.9 Chest pain, unspecified; I10 Essential (primary) hypertension; E78.5 Hyperlipidemia, unspecified; Z72.0 Tobacco use
CPT/HCPCS: 36415; 80048; 80061; 80076; 83735; 84439; 84443; 85025

== ENCOUNTER 2024-02-16 10:31 | Emergency (ER) | payer OTHER, SELFPAY ==
[2024-02-16] VITALS (8 sets, daily range): BP systolic 102–138; BP diastolic 62–86; PULSE 63–80; RESP 18; TEMP 36.5–36.7; O2SAT 98–99; BMI 33.3
--- NOTE | 2024-02-16 11:52 | CT_ITS ---
FINAL REPORT CLINICAL HISTORY: back abscess FINDINGS: Axial CT images of the chest were obtained with contrast. Coronal and sagittal reformatted images were also obtained. This study was performed with techniques to keep radiation doses as low as reasonably achievable, (ALARA). Individualized dose reduction techniques using automated exposure control or adjustment of mA and/or KV according to the patient''''s size were employed. There is no evidence of mediastinal or hilar mass or adenopathy.No axillary mass or adenopathy is identified. On lung window images, no pulmonary mass or dominant pulmonary nodule is identified. No localized pulmonary inflammatory process is identified. There is no evidence of pneumothorax or pleural effusion. A left paramedian upper back subcutaneous fluid collection is seen with surrounding stranding measuring 14 mm. This is well-visualized on axial image 22 and is worrisome for a subcutaneous abscess or infected sebaceous cyst. No other chest wall abnormality is identified. There is a less than 1 cm cyst in the right liver dome. IMPRESSION: 14 mm probable subcutaneous abscess or infected sebaceous cyst in the left paramedian upper back. Authenticated and ERN
[2024-02-16 12:00] LABS: Basophils # 0.1 K/mm3 (0-0.2); Basophils % 0.7 % (0.1-2.0); Chloride 105 mmol/L (98-107); Eosinophils # 0.1 K/mm3 (0.0-0.4); Eosinophils % 1.1 % (0.1-12.0); Hematocrit 39.6 % (37.0-47.0); Hemoglobin 12.4 g/dL (12.2-16.2); Lymphocytes # 2.2 K/mm3 (0.7-4.5); Lymphocytes % 32.9 % (10-50); Mean Corpuscular HGB Conc 31.2 g/dL (31.8-35.4); Mean Corpuscular Hemoglobin 29.3 pg (27.0-31.2); Mean Platelet Volume 9.1 fl (7.4-10.4); Monocytes # 0.3 K/mm3 (0.1-1.0); Monocytes % 4.6 % (1.7-9.3); Neutrophils # 4.1 K/mm3 (1.8-7.8); Neutrophils % 60.7 % (37.0-80.0); Platelet Count 276 K/mm3 (142-424); Potassium 3.8 mmoL/L (3.5-5.1); Red Blood Count 4.21 M/mm3 (4.20-5.40); Red Cell Distribution Width 13.7 % (11.5-17.5); Sodium 136 mmol/L (136-145); White Blood Count 6.8 K/mm3 (4.8-10.8)
[2024-02-16 12:03] LABS: Anion Gap 6.8 mEq/L (5-15); Blood Urea Nitrogen 10 mg/dl (7-17); Calcium 8.9 mg/dl (8.4-10.2); Carbon Dioxide 28 mmol/L (22.0-30.0); Creatinine Clearance Estimated 136 mL/min (50-200); Estimated Glomerular Filt Rate 77 ml/min (>60); GFR (African American) 93 ML/MIN (>60); Glucose 113 mg/dl (74-100)
[2024-02-16 12:07] LABS: HCG Qualitative, Serum Negative (Negative)
[2024-02-16 12:08] LABS: C-Reactive Protein 16.3 mg/L (0-4)
[2024-02-16] MEDS: SODIUM CHLORIDE 0.9% 10ML SYR (RAD ONLY) 10 ML IV (12:10)
[2024-02-16] MEDS: IOPAMIDOL-370 (76%);100ML BOTTLE 75 ML IV (12:10)
[2024-02-16 13:06] LABS: Erythrocyte Sedimentation Rate 35 mm/hr (0-20)
--- NOTE | 2024-02-16 13:27 | HMH.EDGENADL ---
Discharge Plan Disposition Patient Disposition: Home, Self-Care Condition: Good Prescriptions Prescriptions: New clindamycin HCl 300 mg capsule 300 mg PO Q8H 7 Days Qty: 21 0RF No Action cephalexin 500 mg capsule 500 mg PO TID 10 Days Qty: 30 0RF sulfamethoxazole-trimethoprim 800-160 mg tablet 1 tab PO BID 10 Days Qty: 20 0RF escitalopram oxalate [Lexapro] 10 mg tablet 10 mg PO DAILY Qty: 90 1RF lisinopril 20 mg tablet 20 mg PO DAILY Qty: 90 1RF hydrochlorothiazide 25 mg tablet See Rx Instructions .ROUTE .COMPLEX Qty: 90 0RF Dose Instruction: Take 1 tablet by mouth once daily Rx Instructions: Take 1 tablet by mouth once daily progesterone micronized 100 mg capsule See Rx Instructions .ROUTE .COMPLEX Qty: 30 11RF Dose Instruction: Take 1 capsule by mouth once daily Rx Instructions: Take 1 capsule by mouth once daily amlodipine [Norvasc] 5 mg tablet 5 mg PO DAILY hydroxyzine pamoate [Vistaril] 25 mg capsule 25 mg PO TID PRN (Reason: anxiety) naproxen 500 mg tablet 500 mg PO DAILY PRN (Reason: Pain) Premarin 1.25 mg Tablet 1.25 mg PO DAILY mv,Ca,[id number] no.157 400 mcg Tablet 1 tab PO DAILY Referrals Follow up/Referrals: Sam Mclaughlin DO [Primary Care Provider] - See instructions Activity Restrictions/Add. Instructions Additional Instructions/Restrictions: You have been evaluated in the ED for your complaints. You may follow-up with your PCP in the next 3 to 5 days. Please return to ED for any new or worsening symptoms. I have written for clindamycin to treat infection. Please discontinue other antibiotics at this time. Please continue taking Tylenol and ibuprofen every 5-6 hours as needed. If the area does not improve over the next few days please return for further management Clinical Impressions Clinical Impression: Abscess of back Instructions Patient Instructions: DI for Skin Abscess Print Language Print Language: Qatari Discharge ED Provider: Davis Delcid Adult HPI General Chief complaint: Skin/Abscess/Foreign Body Stated complaint: poss cyst on back Time Seen by Provider: 02/16/24 10:43 Mode of Arrival: Ambulatory Source of Information: Patient Limitations: No Limitations Description of Symptoms (Recalled from ER Triage Doc. by RN): PT STATES SHE HAS HAD A CYST ON HER L UPPER BACK FOR A FEW YEARS. PT STATES AT BASELINE IT HAS BEEN THE SIZE OF A DIME AND NEVER BOTHERED HER. PT REPORTS ON 02/05 SHE NOTICED IT STARTED SWELLING AND BECAME PAINFUL. PT WAS PUT ON BACTRIM AND KEFLEX ON 02/08, PT REPORTS THE AREA HAS BEEN WORSENING SINCE. PT PRESENTS WITH A QUARTER SIZED CYST TO THE L UPPER BACK. THE AREA IS WARM, EDEMATOUS, NO DRAINAGE PRESENT AND HAS ECCHYMOSIS. PT REPORTS THE PAIN FEELS LIKE PRESSURE AND IS A 6/10. PT TOOK TYLENOL AROUND 0830 WITHOUT ANY RELIEF. History of Present Illness HPI narrative: 48-year-old female with past medical history significant for HLD, depression/anxiety, HTN, reports history of cyst on her back for the past couple of years, presents today for evaluation concerning increase in size and redness over cyst. She states that she was seen by outside provider on last week who gave her prescriptions for Keflex and Bactrim which she has been taking for the past several days however she notes that her symptoms have not been improving. She states that she feels as if the pain is radiating further into her back. Denies have any fevers, chills, shortness of breath, nausea vomiting, abdominal pain or any other associated symptoms. Related Data Home Medications ?Medication ?Instructions ?Recorded ?Confirmed amlodipine 5 mg tablet (Norvasc) 5 mg PO DAILY 01/16/24 02/12/24 hydroxyzine pamoate 25 mg capsule 25 mg PO TID PRN anxiety 01/16/24 02/12/24 (Vistaril) conjugated estrogens 1.25 mg 1.25 mg PO DAILY 01/18/24 02/12/24 tablet (Premarin) multivitamin,Ca,mineral-folic 1 tab PO DAILY 01/18/24 02/12/24 acid-herbal no.157 400 mcg tablet naproxen 500 mg tablet 500 mg PO DAILY PRN Pain 01/18/24 02/12/24 Previous Rx's ?Medication ?Instructions ?Recorded escitalopram oxalate 10 mg tablet 10 mg PO DAILY #90 tabs 12/19/23 (Lexapro) lisinopril 20 mg tablet 20 mg PO DAILY #90 tabs 12/19/23 hydrochlorothiazide 25 mg tablet See Rx Instructions .Route 01/12/24 .COMPLEX #90 tabs cephalexin 500 mg capsule 500 mg PO TID 10 days #30 caps 02/09/24 sulfamethoxazole 800 1 tab PO BID 10 days #20 tabs 02/09/24 mg-trimethoprim 160 mg tablet progesterone micronized 100 mg See Rx Instructions .Route 02/13/24 capsule .COMPLEX #30 caps clindamycin HCl 300 mg capsule 300 mg PO Q8H 7 days #21 caps 02/16/24 Allergies Allergy/AdvReac Type Severity Reaction Status Date / Time No Known Allergies Allergy Verified 02/16/24 10:53 [facility] Dis[facility]: The information contained in this section may have been updated after the patient was seen, as this information can be updated by other users. Medical History Insomnia History of hypertension History of adrenal disorder Surgical History History of endometrial ablation History of hysteroscopy Hx of knee surgery History of back surgery L4, L5 Hx of cholecystectomy Hx of tonsillectomy Hx of tubal ligation Family History Other Diabetes Hypertension Social History Smoking Status: Current every day smoker tobacco type: cigarettes how long ago did patient quit smoking: just smoked socially in the past; none current second hand exposure: No alcohol intake: current alcohol intake frequency: holidays/special occasions only counseling given: No substance use type: marijuana counseling given: No (last time she did this was about 3 weeks ago) current occupational status: employed Travel in the last 8 weeks: None adopted: No caregiver/support person: No foster care: No household members: significant other housing: house lives independently: Yes marital status: number of children: 2 number of grandchildren: 1 education level: high school 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 Travel: No sexually active: Yes caffeine: Yes physical activity: none working smoke detector in home: Yes fire extinguisher in home: Yes carbon monox detector in home: Yes firearms in home: No do you feel safe at home: Yes victim of physical abuse: No victim of emotional abuse: No victim of sexual abuse: No ROS Obtained: Yes All systems reviewed & no additional complaints except as documented Physical Exam General General appearance: alert and in no apparent distress Head Head exam: atraumatic and normocephalic Eye Eye exam: Present normal appearance, PERRL and EOMI ENT ENT exam: Present normal oropharynx and mucous membranes moist Neck Neck exam: Present full ROM; Absent meningismus Respiratory Respiratory exam: Absent respiratory distress, wheezes, stridor or accessory muscle use Cardiovascular Cardiovascular exam: Present normal rhythm Abdominal Exam Abdominal exam: Present soft; Absent distention, tenderness, guarding, rebound or rigidity Back Exam Back exam: Present full ROM and other (Patient has a 2 x 2 cm circular area on the left upper back with overlying erythema. Mild fluctuance and induration. Tenderness to palpation.); Absent normal inspection Neurological Exam Neurological exam: Present alert, oriented X3 and CN II-XII intact; Absent motor sensory deficit Psychiatric Psychiatric exam: Present normal affect and normal mood Skin Skin exam: Present warm and dry Medical Decision Making Medical Records Medical records reviewed: Yes I reviewed the patient's medical records. Norberto Inquiry Pt receiving controlled substance: No Norberto was queried for this patient: No Vital Signs: 02/16/24 10:44 02/16/24 11:25 02/16/24 11:30 Temperature 97.7 F Temperature Source Oral Pulse Rate 64 63 Pulse Rate [Left] 80 Respiratory Rate 18 Blood Pressure 106/68 L 110/62 Blood Pressure [Right Arm] 138/84 Blood Pressure Mean 80 72 Blood Pressure Mean [Right Arm] 102 Blood Pressure Source [Right Arm] Automatic Cuff Blood Pressure Position [Right Arm] Sitting 02 Sat by Pulse Oximetry 98 Oxygen Delivery Method Room Air Room Air Room Air 02/16/24 12:00 02/16/24 12:31 02/16/24 13:00 Temperature Temperature Source Pulse Rate 67 Pulse Rate [Left] Respiratory Rate Blood Pressure 102/65 L 138/86 106/67 L Blood Pressure [Right Arm] Blood Pressure Mean 73 100 80 Blood Pressure Mean [Right Arm] Blood Pressure Source [Right Arm] Blood Pressure Position [Right Arm] 02 Sat by Pulse Oximetry Oxygen Delivery Method Room Air 02/16/24 13:30 Temperature Temperature Source Pulse Rate Pulse Rate [Left] Respiratory Rate Blood Pressure 110/62 Blood Pressure [Right Arm] Blood Pressure Mean 77 Blood Pressure Mean [Right Arm] Blood Pressure Source [Right Arm] Blood Pressure Position [Right Arm] 02 Sat by Pulse Oximetry Oxygen Delivery Method Lab Data Lab Results 02/16/24 10:53: WBC 6.8, RBC 4.21, Hgb 12.4, Hct 39.6, MCV 94.0, MCH 29.3, MCHC 31.2 L, RDW 13.7, Plt Count 276, MPV 9.1, Neut % (Auto) 60.7, Lymph % (Auto) 32.9, Desha % (Auto) 4.6, Eos % (Auto) 1.1, Baso % (Auto) 0.7, Neut # (Auto) 4.1, Lymph # (Auto) 2.2, Desha # (Auto) 0.3, Eos # (Auto) 0.1, Baso # (Auto) 0.1, ESR 35 H, Sodium 136, Potassium 3.8, Chloride 105, Carbon Dioxide 28, Anion Gap 6.8, BUN 10, Creatinine 0.80, Estimated Creat Clear 136, Estimated GFR 77, Est GFR ( Amer) 93, Glucose 113 H, Calcium 8.9, C-Reactive Protein 16.3 H, Serum HCG, Qual Negative 02/16/24 10:53 02/16/24 10:53 Orders (Tests/Meds): ED MEDICATIONS Generic Name Dose Route Start Last Admin Trade Name Freq PRN Reason Stop Dose Admin Sodium Chloride 10 ml 02/16/24 12:10 02/16/24 12:10 Sodium Chloride 0.9% 10ml Syr (Rad Only) IV 03/17/24 12:09 10 ml NEEDED PRN Administration Maintain IV Site Sodium Chloride 10 ml 02/16/24 14:15 Sodium Chloride 0.9% 10ml Vial IV 03/17/24 14:14 NEEDED PRN to Dilute Lorazepam inj Discontinued Medications Generic Name Dose Route Start Last Admin Trade Name Freq PRN Reason Stop Dose Admin Iopamidol 75 ml 02/16/24 12:10 02/16/24 12:10 Iopamidol-370 (76%);100ml Bottle IV 02/16/24 12:11 75 ml ONCE ONE Administration Lorazepam 1 mg 02/16/24 14:15 02/16/24 14:20 Lorazepam 2mg/Ml Vial IV 02/16/24 14:16 1 mg ONCE ONE Administration ORDERS Category Date Time Status CT chest w con Stat Cat Scan 02/16/24 11:52 Completed POCUS Point of Care (ER Only) Stat Exams 02/16/24 11:38 Completed BMP [Basic Metabolic Panel] Stat Lab 02/16/24 10:53 Completed CBC w/Auto Diff [Complete Blood Count Auto Diff] Stat Lab 02/16/24 10:53 Completed CRP [C-Reactive Protein] Stat Lab 02/16/24 10:53 Completed ESR [Erythrocyte Sedimentation Rate] Stat Lab 02/16/24 10:53 Completed Serum [HCG Qualitative, Serum] Stat Lab 02/16/24 10:53 Completed Medical Decision Narrative: 48-year-old female with past medical history significant for HLD, depression/anxiety, HTN, reports history of cyst on her back for the past couple of years, presents today for evaluation concerning increase in size and redness over cyst. She states that she was seen by outside provider on last week who gave her prescriptions for Keflex and Bactrim which she has been taking for the past several days however she notes that her symptoms have not been improving. She states that she feels as if the pain is radiating further into her back. On assessment the patient was hemodynamically stable and in no acute distress. Afebrile. Chest clear to station bilateral. Abdomen soft nondistended nontender palpation.Patient has a 2 x 2 cm circular area on the left upper back with overlying erythema. Mild fluctuance and induration. Tenderness to palpation. Other physical exam vitals unremarkable differential diagnoses include but limited to abscess, infected cyst, infected lipoma, among others. No elevation in WBC today at 6.8. ESR elevated at 35. CMP nonactionable. CRP 16.3. CT shows a 14 mm subcutaneous abscess or infected sebaceous cyst in the left paramedian upper back. Patient remains hemodynamically stable and in no acute distress on reassessment. She has been consented for incision and drainage. I was able to express serosanguineous fluid from wound with patient tolerating well. Dressing applied. Discussed with patient ED work-up and results and current plan to discharge. Will discharge with clindamycin. Provided with return to ED precautions and instructions concerning PCP follow-up. Patient verbalized understanding and agreement with plan. Subsequently discharged hemodynamically stable and in no acute distress. Procedures Abscess I/D Site: back Side (if applicable): left Local Anesthetic: lidocaine 1% Amount of anesthesia used (mL): 2 Technique: incised with #11 blade Amount of fluid expressed (mL): 5 Irrigation: Yes Packing used?: none Complications: bleeding Critical Care Critical Care Time Critical Care Time: No
--- NOTE | 2024-02-16 14:14 | PC.NURSE ---
DR MARTINEZ AT BEDSIDE
[2024-02-16] MEDS: LORazepam 2MG/ML VIAL 1 MG IV (14:20)
== END 2024-02-16 15:05 | disposition home or self-care (01) ==
PROVIDERS: Emergency Provider Emergency Medicine; PCP Internal Medicine
DX: L02.212 Cutaneous abscess of back [any part, except buttock and flank] (principal)
CPT/HCPCS: 10060; 71260; 80048; 84703; 85025; 85651; 86140; 96374; 99285; J2060; Q9967

== ENCOUNTER 2024-02-23 06:57 | Outpatient (CLI) | payer OTHER, SELFPAY ==
--- NOTE | 2024-02-23 06:58 | CA_ITS ---
APPROVED REPORT EXAM: Comprehensive 2D, Doppler, and color-flow Echocardiogram Manager Interventional: Viki Osborne CRT Ht: 5 ft 8 in Wt: 219lbs BSA: 2.12 BP: 138/89 mmHg Indications: Chest Pain 2D Dimensions Left Atrium 3.93 cm LVEF (Devries's) 59.70 % LVOT 2.05 cm (M/F) 1.5-2.5 LV Volume 98.40 mL LA Volume 57.70 mL LA Volume Index 27.20 mL/m2 (M/F) 16-34 EF AP4 62.90 % EF AP2 56.1 % EF BP 59.7 % GL Strain -17.6 % M-Mode Dimensions RVDd 3.03 cm (0.9-2.6) LVDd 3.92 cm (3.5-5.7) Ao Diam 3.78 cm (2.0-3.7) LVDs 2.64 cm (3.5-5.7) IVSd 1.21 cm (0.6-1.1) PWd 1.00 cm (0.6-1.1) EF (Teich) 61.60% FS 32.70% EDV (Teich) 66.70 mL TAPSE 2.34 (<1.7) ESV (Teich) 25.60 mL LV Diastology E Decel Time 364 (160-240 msec) E/A Ratio 0.98 MED E' 7.6 (>= 7 cm/sec) MED A' 7.90 cm/s E'/MED E' Ratio 8.50 (<= 14) LAT E' 11.8 (>= 10 cm/sec) LAT A' 9.30 cm/s E/LAT E' Ratio 5.47 (<= 14) Aortic Valve AoV Peak Alton. 142.0 (50-130 cm/s) AO Peak GR. 8.00 mmHg Mitral Valve MV E Max Alton. 65.0 (40-130 cm/s) MV A Velocity 66.0 (40-130 cm/s) E/A Ratio 0.98 MV Decel. Time 364 (160-240 ms) Tricuspid Valve TR P. Velocity 237.00 cm/s RAP Estimate 10.00 mmHg RVSP 32.40 mmHg Left Ventricle The left ventricle is normal size. The left ventricular systolic function is normal. The left ventricular ejection fraction is within the normal range. There is normal left ventricular wall thickness. There is normal LV segmental wall motion. The left ventricular diastolic function is normal. LVEF is 60%. Right Ventricle The right ventricle is normal size. The right ventricular systolic function is normal. Atria The left atrium size is normal. The right atrium size is normal. There is no Doppler evidence of interatrial shunt. Aortic Valve The aortic valve opens well. There is no aortic valvular stenosis. Trace aortic regurgitation. Mitral Valve The mitral valve is normal in structure. No evidence of mitral valve stenosis. Trace mitral valve regurgitation noted. Tricuspid Valve Tricuspid valve is grossly normal in structure and function. Trace tricuspid regurgitation. RVSP is 18 mmHg + RA pressure. Pulmonic Valve The pulmonary valve is normal in structure. Trace pulmonic regurgitation. Great Vessels The aortic root is normal in size. The ascending aorta is not well-visualized. The IVC is not well-visualized. Pericardium There is no pericardial effusion. Conclusion Normal biventricular systolic function. No significant valvular stenosis or regurgitation. Electronically signed by : Trudy Ramos MD 02/25/2024 21:58:52
--- NOTE | 2024-02-23 06:58 | CA_ITS ---
APPROVED REPORT Exam: Exercise Treadmill Technologist: Natalia Williamson, Ht: 5 ft 8 in Wt: 219 lbs BSA: 2.12 m2 HR: 64 bpm BP: 138/88 mmHg Rhythm: NSR Medical History Medications: Amlodipine,,,,, Lisinopril,,,,, Cephalexin,,,,, Lexapro,,,,, Premarin,,,,, Hydrochlorothiazide,,,,, Naproxen,,,,, SuLFAMETHOXAZole-Trimethoprim,,,,, Hydroxyzine pamoate,,,,, ProGESTERONE micronized,,,,, Stress Test Details Test: Thang HR Resting HR: 67 bpm Max Heart Rate (APMHR): 173 bpm Max HR Achieved: 171 bpm Target HR (85% APMHR): 147 bpm % of APMHR: 99 Recovery HR: 82 bpm HR response to stress: Normal HR response to stress BP Resting BP: 130.0/81.0 mmHg Max BP: 192.0/96.0 mmHg Recovery BP: 154.0/80.0 mmHg BP response to stress: Normal blood pressure response to stress. ECG Resting ECG: Normal sinus rhythm Stress EC.[address] depression Arrhythmia: None Recovery ECG: Return to baseline within 3 minutes of recovery Recovery Arrhythmia: None Clinical Exercise duration: 08:10 min Highest Stage Achieved: Exercise capacity: 10.1 METs Overall Exercise Capacity for Age: Average Stress ECG Conclusion The patient was able to exercise for a total of 8 minutes, 10 seconds. She achieved a total of 10.1 METS. She has average exercise capacity compared to age and sex matched peers.She has normal HR and BP response to exercise. Symptoms: SOB and chest tightness noted. Dizziness stopped test. Arrhythmias/Ectopy: none. ST changes: 0.[address] depression Conclusion: Average exercise capacity. No ischemic ECG changes at peak stress. Myoview images reported separately. Test Summary REST . . . . . . . Sitting REST . . . . . . . Standing REST 15:16 0.0 0.0 67 . 130/ 81 . . Stage 1 01:00 10.0 1.7 110 . . . . Stage 1 02:00 10.0 1.7 116 . . . . Stage 1 03:00 10.0 1.7 114 . 142/ 98 . . Stage 2 01:00 12.0 2.5 123 . . . . Stage 2 02:00 12.0 2.5 129 . . . . Stage 2 03:00 12.0 2.5 135 . . . . Stage 3 01:00 14.0 3.4 157 . 160/100 . . Stage 3 02:00 14.0 3.4 169 . 160/100 . . Stage 3 02:10 14.0 3.4 170 . 160/100 . Stop exercise at 08:10 RECOVERY 01:00 0.0 0.0 152 . . . . RECOVERY 02:00 0.0 0.0 120 . . . . RECOVERY 03:00 0.0 0.0 106 . 192/ 96 . . RECOVERY 04:00 0.0 0.0 92 . 169/ 87 . . RECOVERY 05:00 0.0 0.0 85 . 173/ 87 . . RECOVERY 05:53 0.0 0.0 84 . 154/ 80 . . Electronically signed by : Trudy Ramos MD 02/25/2024 21:50:34
--- NOTE | 2024-02-23 06:58 | NM_ITS ---
APPROVED REPORT Exam: Nuclear Stress Test Indication: htn, tob use, fm hx, c.p., palpitations, syncope, fatigue Patient Location: Outpatient Stress Tech: Natalia Winona AR Tech:NATASHA Martinez RT (R)(N)(M) Ht: 5 ft 8 in Wt: 219 lbs Bra Size: 42ddd HR: 64 bpm BP: 138/88 mmHg BSA: 2.12 m2 Rhythm: NSR TID: 1.15 BMI: 33.2 History: htn, tob use, fm hx, c.p., palpitations, syncope, fatigue Procedure: Patient exercised on Thang protocol 8:10 minutes and sec, resting heart rate 64 bpm, resting blood pressure 138/88 mmHg, with exercise maximum heart rate achived was 162 bpm which is 99 % of the maximum predicted heart rate and blood pressure was 192/96 mmHg. Test was stopped due to fatigue. Patient denied any complaint of chest pain. Patient has average exercise capacity, achieved 10.1 METs of workload on treadmill, the blood pressure response to exercise was normal. Cardiac Stress and Resting SPECT Images: Cardiac Stress and Resting SPECT images were obtained using technetium 99m Myoview 30.2 mCi stress and 10.96 mCi at rest. Resting and stress imaging in supine and prone positions demonstrate no evidence of fixed or reversible perfusion defects. Gated imaging demonstrates normal global and regional LV systolic function. LVEF is calculated at 73%. Conclusion: No evidence of fixed or reversible perfusion defects. Gated imaging demonstrates normal global and regional LV systolic function. LVEF is calculated at 73%. Electronically signed by : Trudy Ramos MD 02/25/2024 21:51:53
[2024-02-23] MEDS: SODIUM CHLORIDE 0.9% 10ML SYR (RAD ONLY) 10 ML IV ×2 (09:52)
[2024-02-23] MEDS: ISOTOPE MYOVIEW (PER STUDY) 1 DOSE IV (09:52)
== END 2024-02-23 23:59 | disposition home or self-care (01) ==
LOC: RAD 06:58
PROVIDERS: PCP Internal Medicine; Visit Provider Nurse Practitioner
DX: R94.31 Abnormal electrocardiogram [ECG] [EKG] (principal); R06.00 Dyspnea, unspecified; R07.9 Chest pain, unspecified
CPT/HCPCS: 78452; 93017; 93018; 93306; A9502